=== PATIENT | female | born 1950 | race Caucasian/White ===

== ENCOUNTER → 2017-06-30 08:54 | Outpatient (CLI) | payer BC, MEDICARE, SELFPAY ==
[2017-06-30 11:25] LABS: Alanine Aminotransferase 34 U/L (12-78); Albumin Level 3.7 gm/dL (3.4-5.0); Albumin/Globulin Ratio 1.2 (1.1-1.8); Alkaline Phosphatase 105 U/L (46-116); Anion Gap 13.9 mEq/L (5-15); Aspartate Amino Transferase 19 U/L (15-37); Bilirubin,Total 0.3 mg/dL (0.2-1.0); Blood Urea Nitrogen 21 mg/dL (7-18); Calcium 9.8 mg/dL (8.5-10.1); Carbon Dioxide 29 mmol/L (21.0-32.0); Chloride 106 mmol/L (98-107); Chol/HDL Ratio 3.5 (1-3.5); Cholesterol 218 mg/dL (140-200); Creatinine,Serum 0.93 mg/dL (0.55-1.02); Estimated Glomerular Filt Rate 60 ml/min (>60); GFR (African American) 73 ML/MIN (>60); Globulin 3.1 gm/dl (1.3-3.2); Glucose 150 mg/dL (74-106); HDL Cholesterol 63 mg/dL (29-89); LDL Cholesterol 134 mg/dL (0-130); Potassium 4.9 mmoL/L (3.5-5.1); Sodium 144 mmol/L (136-145); Total Protein,Serum 6.8 gm/dL (6.4-8.2); Triglycerides 104 mg/dL (30-200); VLDL Cholesterol 21 mg/dL (0-40)
== END ==
PROVIDERS: Visit Provider Internal Medicine Adolescent Medicine
DX: E78.5 Hyperlipidemia, unspecified (principal)
CPT/HCPCS: 36415; 80053; 80061

== ENCOUNTER → 2019-02-02 13:41 | Outpatient (CLI) | payer BC, MEDICARE, SELFPAY ==
--- NOTE | 2019-02-02 14:00 | CT_ITS ---
PROCEDURE: CT ABDOMEN WO/W CON CLINICAL HISTORY: SMA STENOSIS,MESENTERIC ISCHEMIA Superior mesenteric artery stenosis, mesenteric ischemia COMPARISON: CT ABDOMEN PELVIS W CON from 12/24/2018 TECHNIQUE: 75 mL Optiray 350. Images performed without and with contrast. This study was not performed as a CT angiogram which would best quantitate the SMA stenosis. Axial images obtained with sagittal and coronal reformats. All CT scans at the facility use one or more dose reduction, viz: automated exposure control, ma/kV adjustment per patient size (including targeted exams where dose is matched to indication, i.e. head), or iterative reconstruction technique. FINDINGS: Lung bases are clear. Pacemaker artifact noted. There is a small hiatal hernia. The liver, gallbladder, spleen, adrenal glands, pancreas, and kidneys have an unremarkable appearance. No renal or ureteral calculi. Unremarkable appendix. There is a mild amount of retained colonic feces. Calcific plaque is present at the ostium of the celiac artery. There is once again suspected stenosis at the proximal aspect of superior mesenteric artery. This is not further quantitated on this exam. Consider CT angiogram of the aorta for better quantification of the degree of stenosis. There is nonspecific stranding of the subcutaneous fat in the lower abdominal wall. IMPRESSION: 1. No acute finding. 2. Stenosis of the ostium of the superior mesenteric artery of at least [address] angiogram of the aorta for better quantification. Dictated by: Greg Ramirez MD 02/03/2019 13:09 Electronically signed by Greg Ramirez MD in [place] 02/03/2019 13:09
[2019-02-02 14:35] LABS: Blood Urea Nitrogen 21 mg/dL (7-18); Creatinine,Serum 1.23 mg/dL (0.55-1.02); Estimated Glomerular Filt Rate 44 ml/min (>60); GFR (African American) 53 ML/MIN (>60)
== END ==
PROVIDERS: PCP Internal Medicine Adolescent Medicine; Visit Provider Internal Medicine Adolescent Medicine
DX: I77.1 Stricture of artery (principal); K55.9 Vascular disorder of intestine, unspecified
CPT/HCPCS: 36415; 74170; 82565; 84520; Q9967

== ENCOUNTER → 2019-06-22 08:23 | Outpatient (CLI) | payer MEDICARE, OTHER, SELFPAY ==
--- NOTE | 2019-06-22 08:31 | US_ITS ---
PROCEDURE: US GALLBLADDER CLINICAL INDICATION: ABD PAIN Right upper quadrant pain with nausea and vomiting COMPARISON: CT ABDOMEN WO/W CON from 02/02/2019 FINDINGS: Pancreas: Unremarkable/Not well seen Liver: Unremarkable. There is appropriate direction of blood flow within a non dilated portal vein. Right kidney: Unremarkable appearing. No hydronephrosis. Gallbladder: No gallstones are evident. There is a small slightly hyperechoic nodule along the posterior wall the gallbladder which measures 5 mm. This does not shadow and is consistent with a small gallbladder polyp. No pericholecystic fluid or biliary dilatation. No gallbladder wall thickening. IMPRESSION: Small gallbladder wall polyp otherwise negative Dictated by: Greg Ramirez MD 06/22/2019 13:07 Electronically signed by Greg Ramirez MD in [facility] 06/22/2019 13:07
[2019-06-22 10:27] LABS: Blood Urea Nitrogen 20 mg/dl (7-17); Estimated Glomerular Filt Rate 55 ml/min (>60); GFR (African American) 67 ML/MIN (>60)
== END ==
PROVIDERS: PCP Internal Medicine Adolescent Medicine; Visit Provider Internal Medicine Adolescent Medicine
DX: R10.11 Right upper quadrant pain (principal); N18.1 Chronic kidney disease, stage 1
CPT/HCPCS: 36415; 76705; 82565; 84520

== ENCOUNTER → 2019-07-05 10:11 | Outpatient (CLI) | payer MEDICARE, OTHER, SELFPAY ==
--- NOTE | 2019-07-05 10:18 | NM_ITS ---
PROCEDURE: NM HEPATOBILIARY W PHARM CLINICAL INDICATION: ABD PAIN COMPARISON: No exams were available for comparison TECHNIQUE: DOSE: 8.06 mCi technetium Choletec and 1.8 mcg of CCK FINDINGS: Homogeneous activity is present within the hepatic parenchyma. Activity is present in the gallbladder by 5 minutes. Activity is present in the small bowel by 20 minutes. The gallbladder ejection fraction is calculated to be 92 percent. CCK-The patient did not report pain or other symptoms during CCK infusion. IMPRESSION: Unremarkable hepatobiliary scan with normal gallbladder ejection fraction Dictated by: Greg Ramirez MD 07/05/2019 12:58 Electronically signed by Greg Ramirez MD in [facility] 07/05/2019 12:58
--- NOTE | 2019-07-05 10:49 | HMH.ITSHM ---
Current Home Medications as stated by this patient Zenaida Griggs or leasing representative. []TYLENOL PM MIRALAX LYRICA AMLODIPINE BLADDER MED CELEXA VITAMINS
== END ==
PROVIDERS: PCP Internal Medicine Adolescent Medicine; Visit Provider Internal Medicine Adolescent Medicine
DX: R10.11 Right upper quadrant pain (principal)
CPT/HCPCS: 78227; A9537; J2805

== ENCOUNTER → 2020-09-12 09:30 | Outpatient (CLI) | payer MEDICARE, OTHER, SELFPAY ==
[2020-09-12 10:10] LABS: Basophils # 0.1 K/mm3 (0-0.2); Basophils % 1.2 % (0.1-2.0); Eosinophils # 0.4 K/mm3 (0.0-0.4); Eosinophils % 6.3 % (0.1-12.0); Hematocrit 38.1 % (37.0-47.0); Hemoglobin 12.4 g/dL (12.2-16.2); Mean Corpuscular HGB Conc 32.6 g/dL (31.8-35.4); Mean Corpuscular Hemoglobin 29.2 pg (27.0-31.2); Mean Corpuscular Volume 89.5 fl (81-99); Mean Platelet Volume 7.4 fl (7.4-10.4); Monocytes # 0.5 K/mm3 (0.1-1.0); Monocytes % 8.4 % (1.7-9.3); Neutrophils # 3.4 K/mm3 (1.8-7.8); Platelet Count 266 K/mm3 (142-424); Red Blood Count 4.26 M/mm3 (4.20-5.40); Red Cell Distribution Width 13.1 % (11.5-17.5); White Blood Count 6.4 K/mm3 (4.8-10.8)
[2020-09-12 11:06] LABS: Alanine Aminotransferase 19 U/L (12-78); Albumin Level 4.2 g/dl (3.5-5.0); Albumin/Globulin Ratio 1.8 (1.1-1.8); Alkaline Phosphatase 95 U/L (38-126); Anion Gap 16.1 mEq/L (5-15); Aspartate Amino Transferase 21 U/L (14-36); Bilirubin,Total 0.5 mg/dl (0.2-1.3); Blood Urea Nitrogen 20 mg/dl (7-17); Calcium 9.5 mg/dl (8.4-10.2); Carbon Dioxide 32 mmol/L (22.0-30.0); Chloride 101 mmol/L (98-107); Chol/HDL Ratio 3.6 (1-3.5); Cholesterol 210 mg/dl (140-200); Estimated Glomerular Filt Rate 61 ml/min (>60); GFR (African American) 74 ML/MIN (>60); Globulin 2.4 g/dL (1.3-3.2); Glucose 148 mg/dl (74-100); HDL Cholesterol 59 mg/dl (40-60); Potassium 5.1 mmoL/L (3.5-5.1); Sodium 144 mmol/L (136-145); Total Protein,Serum 6.6 g/dl (6.3-8.2); Triglycerides 131 mg/dl (30-150); VLDL Cholesterol 26 mg/dL (0-40)
[2020-09-12 11:17] LABS: Direct LDL Cholesterol 117.96 mg/dL (100-129)
[2020-09-12 11:20] LABS: Hemoglobin A1C 6.5 % (4.0-6.0)
[2020-09-12 11:57] LABS: Vitamin B12 335 pg/mL (239-931)
== END ==
PROVIDERS: Visit Provider Internal Medicine Adolescent Medicine
DX: R73.9 Hyperglycemia, unspecified (principal); E78.5 Hyperlipidemia, unspecified; E55.9 Vitamin D deficiency, unspecified
CPT/HCPCS: 36415; 80053; 80061; 82306; 82607; 83036; 85025

== ENCOUNTER → 2020-11-07 10:32 | Outpatient (CLI) | payer MEDICARE, OTHER, SELFPAY | PROVIDERS: PCP Internal Medicine Adolescent Medicine; Visit Provider Nurse Practitioner | DX: Z20.822 Contact with and (suspected) exposure to COVID-19 (principal) | CPT/HCPCS: C9803; U0003; U0005 ==

== ENCOUNTER 2020-11-07 18:07 | Emergency (ER) | payer MEDICARE, OTHER, SELFPAY ==
[2020-11-07 18:40] VITALS: BP 162/68; PULSE 74; RESP 18; TEMP 36.8; O2SAT 95; BMI 32.3
[2020-11-07 18:49] LABS: UTC Strep Screen (Rapid) Negative (Negative)
--- NOTE | 2020-11-07 19:16 | HMH.EDUTC ---
[facility] [place] Disposition Clinical Impression: Sinusitis Qualifiers: Sinusitis location: unspecified location Chronicity: unspecified Qualified Code(s): J32.9 - Chronic sinusitis, unspecified Disposition: Home, Self-Care Condition on Discharge: Good Instructions: Sinusitis, Diarrhea, DI for Sinusitis, DI for Vomiting -- Adult Additional Instructions: *Monitor Temp, Over the counter Motrin or Tylenol as directed/as needed Tylenol every 4 hours and Motrin every 6 hours (as long as your family doctor has told you that you can take it) for fever or pain. and straight to ER if unable to lower temp less than 101.0 after medication given *Warm salt water gargles may help to soothe the throat *Throat Lozenges *Warm fluids like tea with honey may help to soothe the throat *Sleep elevated *Humidifier/Vaporizer ? Zofran as prescribed ? You was given an outpatient order for diarrhea panel, please collect specimen and bring back to outpatient lab then call back to the [facility] or follow up with family doctor for results *Flonase 2 sprays in each nostril daily but be aware that it may take 2-3 days before you notice improvement ? Start antibiotic today. Be sure to complete entire prescription even if feeling better ? Monitor temp. Tylenol every 4 hours as needed and / or ibuprofen every 6 hours as needed ( As long as your primary care physician has told you that it ok to take both. For fever/aches/pains ER if no less than 101 despite Tylenol or Motrin ? Humidifier/vaporizer or hot steamy shower Follow up IMMEDIATELY for new or worsening of symptoms OR no noticeable improvement over the next 48-72 hours. 911 immediately for any life threatening symptoms such as chest pain or difficulty breathing Follow up IMMEDIATELY for new or worsening symptoms or no Noticeable improvement over the next 48-72 hours. 911 for difficulty breathing or swallowing Prescriptions: Amoxicillin/Potassium Clav [Augmentin 875-125 Tablet] 1 tab PO Q12H 7 Days #14 tab Transmission Status: Received by [facility] #[id number] Fluticasone Propionate [Flonase 50mcg nasal spray 16gm] 1 spr NS DAILY #1 ml Transmission Status: Received by [facility] # Ondansetron [Zofran 4mg ODT] 4 mg PO BIDP PRN #4 tab PRN Reason: Nausea Transmission Status: Received by [facility] #[id number] Referrals: Miguel Winkler MD [Primary Care Provider] - As needed Time of Disposition: 19:41 Medical Decision Making - Candido Inquiry Pt receiving controlled substance: No Candido was queried for this patient: No Vital Signs: 11/07/20 18:40 11/07/20 19:31 Temperature 98.2 F 98.1 F Temperature Source Oral Pulse Rate 72 Pulse Rate [Left] 74 Respiratory Rate 18 19 Blood Pressure 169/64 H Blood Pressure [Right Arm] 162/68 H Blood Pressure Mean [Right Arm] 99 02 Sat by Pulse Oximetry 95 - Lab Data Lab results reviewed: Yes: I reviewed the patient's lab results. Lab Results 11/07/20 18:49: Strep Scn Rapid Clinic Negative Orders (Tests/Meds): ED MEDICATIONS Discontinued Medications Generic Name Dose Route Start Last Admin Trade Name Freq PRN Reason Stop Dose Admin Amoxicillin/Clavulanate Potassium 1 each 11/07/20 19:51 11/07/20 20:00 Amoxicillin/Pot Clavulan 500mg Tablet PO 11/07/20 19:52 1 each ONCE ONE Administration Ondansetron HCl 4 mg 11/07/20 19:27 11/07/20 19:30 Ondansetron 4mg Odt SL 11/07/20 19:28 4 mg ONCE ONE Administration ORDERS Category Date Time Status Strep Screen Confirmation Stat Micro 11/07/20 18:49 Received Medical Decision Narrative: Due to patient being on Citalopram discussed Zofran for N/V with Pharmacy and will give dose in ED and dc home with 2 days worth at 4mg BID for N/V [facility] [place] HPI - General Stated complaint: sore throat,VÁSQUEZ,vomiting,[place] Time Seen by Provider: 11/07/20 19:17 Mode of Arrival: Ambulatory Source of Information: Patient Limitations: No Limitations Description of
[2020-11-07 19:31] VITALS: BP 169/64; PULSE 72; RESP 19; TEMP 36.7
== END 2020-11-07 20:00 | disposition home or self-care (01) ==
PROVIDERS: Emergency Provider Nurse Practitioner; PCP Internal Medicine Adolescent Medicine
DX: J32.9 Chronic sinusitis, unspecified (principal)
CPT/HCPCS: 87880; 99202; G0463

== ENCOUNTER → 2020-11-08 13:49 | Outpatient (CLI) | payer MEDICARE, OTHER, SELFPAY ==
[2020-11-08 13:50] LABS: Adenovirus F 40/41, stool Not Detected (NotDetected); Astrovirus Not Detected (NotDetected); Campylobacter Not Detected (NotDetected); Clostridium Difficile A/B, PCR Not Detected (NotDetected); Cryptosporidium Not Detected (NotDetected); Cyclospora Cayetanesis Not Detected (NotDetected); Entamoeba histolytica Not Detected (NotDetected); Enteroaggregative E coli Not Detected (NotDetected); Enteropathogenic E coli Not Detected (NotDetected); Enterotoxigenic E coli Not Detected (NotDetected); Giardia lamblia Not Detected (NotDetected); Norovirus Not Detected (NotDetected); Plesimonas Shigalloides, PCR Not Detected (NotDetected); Rotavirus A Not Detected (NotDetected); Salmonella, PCR Not Detected (NotDetected); Sapovirus Not Detected (NotDetected); Shigella Enterovasive E coli Not Detected (NotDetected); Vibrio Cholerae Not Detected (NotDetected); Vibrio, PCR Not Detected (NotDetected); Yersinia Entercolitica, PCR Not Detected (NotDetected)
[2020-11-08 17:13] LABS: Shiga-like toxin E coli Detected (NotDetected)
--- NOTE | 2020-11-08 21:36 | PC.NURSE ---
Zoë from lab called to report results of diarrhea panel ordered by Breanna Blackwell. Specimen resulted positive for E. Choli. Unable to reach pt by phone to report. Will leave note for
== END ==
PROVIDERS: Visit Provider Nurse Practitioner
DX: R19.7 Diarrhea, unspecified (principal); B96.23 Unspecified Shiga toxin-producing Escherichia coli [E. coli] [STEC] as the cause of diseases classified elsewhere
CPT/HCPCS: 87506

== ENCOUNTER → 2020-11-20 15:22 | Outpatient (CLI) | payer MEDICARE, OTHER, SELFPAY ==
[2020-11-20 15:52] LABS: Basophils # 0.1 K/mm3 (0-0.2); Eosinophils # 0.3 K/mm3 (0.0-0.4); Eosinophils % 3.5 % (0.1-12.0); Hematocrit 38.4 % (37.0-47.0); Hemoglobin 12.6 g/dL (12.2-16.2); Lymphocytes # 2.2 K/mm3 (0.7-4.5); Lymphocytes % 28.6 % (10-50); Mean Corpuscular HGB Conc 32.8 g/dL (31.8-35.4); Mean Corpuscular Hemoglobin 30.2 pg (27.0-31.2); Mean Corpuscular Volume 91.9 fl (81-99); Mean Platelet Volume 6.8 fl (7.4-10.4); Monocytes # 0.7 K/mm3 (0.1-1.0); Monocytes % 9.8 % (1.7-9.3); Neutrophils # 4.3 K/mm3 (1.8-7.8); Neutrophils % 57.2 % (37.0-80.0); Platelet Count 393 K/mm3 (142-424); Red Blood Count 4.17 M/mm3 (4.20-5.40); Red Cell Distribution Width 12.4 % (11.5-17.5); White Blood Count 7.6 K/mm3 (4.8-10.8)
[2020-11-20 16:33] LABS: Alanine Aminotransferase 17 U/L (12-78); Albumin Level 3.9 g/dl (3.5-5.0); Albumin/Globulin Ratio 1.4 (1.1-1.8); Alkaline Phosphatase 80 U/L (38-126); Anion Gap 9.5 mEq/L (5-15); Aspartate Amino Transferase 21 U/L (14-36); Bilirubin,Total 0.3 mg/dl (0.2-1.3); Blood Urea Nitrogen 14 mg/dl (7-17); Calcium 9.9 mg/dl (8.4-10.2); Carbon Dioxide 32 mmol/L (22.0-30.0); Chloride 101 mmol/L (98-107); Estimated Glomerular Filt Rate 70 ml/min (>60); GFR (African American) 85 ML/MIN (>60); Globulin 2.8 g/dL (1.3-3.2); Glucose 109 mg/dl (74-100); Potassium 4.5 mmoL/L (3.5-5.1); Sodium 138 mmol/L (136-145); Total Protein,Serum 6.7 g/dl (6.3-8.2)
== END ==
PROVIDERS: Visit Provider Internal Medicine Adolescent Medicine
DX: A09 Infectious gastroenteritis and colitis, unspecified (principal)
CPT/HCPCS: 36415; 80053; 85025

== ENCOUNTER 2020-11-27 16:42 | Inpatient (IN) | payer MEDICARE, OTHER, SELFPAY ==
[2020-11-27 16:43] VITALS: BP 135/67; PULSE 71; RESP 18; TEMP 36.7; O2SAT 98; BMI 32.3
[2020-11-27 17:01] VITALS: BP 153/64; PULSE 68; RESP 16; O2SAT 95
--- NOTE | 2020-11-27 17:01 | ECG_ITS ---
APPROVED REPORT Exam: Resting ECG HR:68 bpm ECG Measurements Heart Rate 68 AXES MO P 80 QRSd 132 QRS -69 QT 460 T 114 QTc 489 Conclusion Electronic ventricular pacemaker Electronically signed by : Miguel Winkler MD 11/28/2020 17:48:59
--- NOTE | 2020-11-27 17:01 | CT_ITS ---
PROCEDURE INFORMATION: Exam: CT Abdomen And Pelvis With Contrast Exam date and time: 11/27/2020 5:01 PM Age: 74 years old Clinical indication: Abdominal pain; Localized; Lower; Additional info: Lower abd pain TECHNIQUE: Imaging protocol: Computed tomography of the abdomen and pelvis with contrast. Radiation optimization: All CT scans at this facility use at least one of these dose optimization techniques: automated exposure control; mA and/or kV adjustment per patient size (includes targeted exams where dose is matched to clinical indication); or iterative reconstruction. Contrast material: ISOVUE; Contrast volume: 75 ml; Contrast route: IV; COMPARISON: CT ABDOMEN WO/W CON 02/02/2019 3:28 PM FINDINGS: Tubes, catheters and devices: Partially visualized pacemaker leads within the right cardiac chambers. Mediastinal space: Small-sized hiatal hernia. Liver: Normal. Gallbladder and bile ducts: Possible minimal cholelithiasis. Pancreas: Normal. Spleen: Normal. Adrenal glands: Normal. No mass. Kidneys and ureters: Normal. Stomach and bowel: Colonic diverticulosis, with extensive acute diverticulitis involving the mid sigmoid colon, where there is moderate wall thickening and adjacent associated inflammatory stranding. No perforation or abscess. Moderate amount of stool throughout the colon, compatible constipation. No obstruction. Appendix: Appendix normal. Intraperitoneal space: Unremarkable. No free air. No significant fluid collection. Vasculature: Atherosclerotic disease of the abdominal aorta and iliac arteries. Atherosclerotic disease of the proximal renal arteries bilaterally as well as the proximal SMA, causing mild luminal narrowing. Phleboliths within the pelvis. Lymph nodes: Unremarkable. No enlarged lymph nodes. Urinary bladder: Unremarkable as visualized. Reproductive: Uterus is surgically absent. Bones/joints: Multilevel thoracolumbar spine degenerative disc space narrowing and osteophyte formation. Soft tissues: Normal. Other findings: Calcified granulomas within the periphery of the visualized lower lobes. IMPRESSION: 1. Colonic diverticulosis, with extensive acute diverticulitis involving the mid sigmoid colon, where there is moderate wall thickening and adjacent associated inflammatory stranding. No perforation or abscess. Recommend follow up after therapy to ensure resolution of these findings, as colonic carcinoma could produce a similar appearance. 2. Moderate amount of stool throughout the colon, compatible constipation. No obstruction.
--- NOTE | 2020-11-27 17:11 | HMH.EDGENADL ---
ED Disposition Clinical Impression: Acute diverticulitis Constipation Qualifiers: Constipation type: unspecified constipation type Qualified Code(s): K59.00 - Constipation, unspecified Disposition: Admitted as Observation Condition on Discharge: Fair Referrals: Miguel Winkler MD [Primary Care Provider] - - Critical Care Critical Care Time: No Attestation: On 11/27/20, the high probability of a clinically significant, sudden or life threatening deterioration of the following system(s) required my full and direct attention, intervention and personal management. The time I documented below is in addition to time spent performing reported procedures but includes the following listed in this critical care notation. Medical Decision Making - Candido Inquiry Pt receiving controlled substance: No Vital Signs: 11/27/20 16:43 11/27/20 17:01 11/27/20 18:00 Temperature 98.0 F Temperature Source Oral Pulse Rate 68 67 Pulse Rate [Right Radial] 71 Respiratory Rate 18 16 Blood Pressure 153/64 H 141/60 H Blood Pressure [Right Arm] 135/67 Blood Pressure Mean [Right Arm] 89 Blood Pressure Source Automatic Cuff Blood Pressure Source [Right Arm] Automatic Cuff Blood Pressure Position Sitting Blood Pressure Position [Right Arm] Sitting 02 Sat by Pulse Oximetry 98 95 94 L Oxygen Delivery Method Room Air Room Air - Lab Data Lab Results 11/27/20 17:18: WBC 14.9 H, RBC 4.26, Hgb 12.5, Hct 39.6, MCV 93.0, MCH 29.5, MCHC 31.7 L, RDW 13.2, Plt Count 417, MPV 8.5, Neut % (Auto) 81.5 H, Lymph % (Auto) 8.3 L, [place] % (Auto) 9.6 H, Eos % (Auto) 0.4, Baso % (Auto) 0.3, Neut # (Auto) 12.1 H, Lymph # (Auto) 1.2, [place] # (Auto) 1.4 H, Eos # (Auto) 0.1, Baso # (Auto) 0.0 11/27/20 17:18: Sodium 135 L, Potassium 3.7, Chloride 97 L, Carbon Dioxide 31 H, Anion Gap 10.7, BUN 10, Creatinine 0.90, Estimated Creat Clear 70, Estimated GFR 61, Est GFR ( Amer) 74, Glucose 201 H, Calcium 9.7, Total Bilirubin 0.5, AST 18, ALT 13, Alkaline Phosphatase 103, Troponin I < 0.01, Total Protein 7.3, Albumin 3.9, Globulin 3.4 H, Albumin/Globulin Ratio 1.1, Lipase 74 Result diagrams: 11/27/20 17:18 11/27/20 17:18 Orders (Tests/Meds): ED MEDICATIONS Generic Name Dose Route Start Last Admin Trade Name Freq PRN Reason Stop Dose Admin Metronidazole 500 mg in 100 mls @ 100 mls/hr 11/27/20 19:45 Flagyl 500mg/100ml Ivpb IV 12/11/20 19:44 Q8H STEVIE Levofloxacin/Dextrose 750 mg in 150 mls @ 100 mls/hr 11/27/20 19:45 Levofloxacin 750mg/150ml Premix IV 12/11/20 19:44 Q24H STEVIE Discontinued Medications Generic Name Dose Route Start Last Admin Trade Name Freq PRN Reason Stop Dose Admin Iopamidol 75 ml 11/27/20 18:21 11/27/20 18:22 Iopamidol-370 (76%);100ml Bottle IV 11/27/20 18:22 75 ml ONCE ONE Administration Methylprednisolone Sodium Succinate 125 mg 11/27/20 20:11 Methylprednisolone Sod Succ 125mg Vial IV 11/27/20 20:12 ONCE ONE Sodium Chloride 1,000 ml 11/27/20 17:30 11/27/20 18:55 Sodium Chloride 0.9% 1000ml Bag IV 11/27/20 17:31 1,000 ml BOLUS ONE Administration Sodium Chloride 10 ml 11/27/20 18:21 11/27/20 18:22 Sodium Chloride 0.9% 10ml Syr (Rad Only) IV 11/27/20 18:22 10 ml ONCE ONE Administration ORDERS Category Date Time Status Rapid PCR Covid and Flu A/B Stat Lab 11/27/20 20:05 Received Troponin I Q3H Lab 11/27/20 20:03 Received Troponin I Q3H Lab 11/27/20 23:15 Ordered UA [Urinalysis and Microscopic] Stat Lab 11/27/20 20:07 Ordered - CT Data CT Scan: Abdomen, Pelvis Time Received: 19:[address] Reviewed: Yes: I have viewed the radiologist's interpretation Findings Narrative: PROCEDURE INFORMATION: Exam: CT Abdomen And Pelvis With Contrast Exam date and time: 11/27/2020 5:01 PM Age: 74 years old Clinical indication: Abdominal pain; Localized; Lower; Additional info: Lower abd pain TECHNIQUE: Imaging protocol: Com
[2020-11-27 17:37] LABS: Chloride 97 mmol/L (98-107); Potassium 3.7 mmoL/L (3.5-5.1); Sodium 135 mmol/L (136-145)
[2020-11-27 17:39] LABS: Alanine Aminotransferase 13 U/L (12-78); Aspartate Amino Transferase 18 U/L (14-36); Blood Urea Nitrogen 10 mg/dl (7-17); Creatinine Clearance Estimated 70 mL/min (50-200); Estimated Glomerular Filt Rate 61 ml/min (>60); GFR (African American) 74 ML/MIN (>60)
[2020-11-27 17:40] LABS: Albumin Level 3.9 g/dl (3.5-5.0); Albumin/Globulin Ratio 1.1 (1.1-1.8); Alkaline Phosphatase 103 U/L (38-126); Anion Gap 10.7 mEq/L (5-15); Basophils % 0.3 % (0.1-2.0); Bilirubin,Total 0.5 mg/dl (0.2-1.3); Calcium 9.7 mg/dl (8.4-10.2); Carbon Dioxide 31 mmol/L (22.0-30.0); Eosinophils # 0.1 K/mm3 (0.0-0.4); Eosinophils % 0.4 % (0.1-12.0); Globulin 3.4 g/dL (1.3-3.2); Glucose 201 mg/dl (74-100); Hematocrit 39.6 % (37.0-47.0); Hemoglobin 12.5 g/dL (12.2-16.2); Lipase 74 U/L (23-300); Lymphocytes # 1.2 K/mm3 (0.7-4.5); Lymphocytes % 8.3 % (10-50); Mean Corpuscular HGB Conc 31.7 g/dL (31.8-35.4); Mean Corpuscular Hemoglobin 29.5 pg (27.0-31.2); Mean Platelet Volume 8.5 fl (7.4-10.4); Monocytes # 1.4 K/mm3 (0.1-1.0); Monocytes % 9.6 % (1.7-9.3); Neutrophils # 12.1 K/mm3 (1.8-7.8); Neutrophils % 81.5 % (37.0-80.0); Platelet Count 417 K/mm3 (142-424); Red Blood Count 4.26 M/mm3 (4.20-5.40); Red Cell Distribution Width 13.2 % (11.5-17.5); Total Protein,Serum 7.3 g/dl (6.3-8.2); White Blood Count 14.9 K/mm3 (4.8-10.8)
[2020-11-27 17:53] LABS: Troponin I < 0.01 ng/ml (0.00-0.034)
[2020-11-27 18:00] VITALS: BP 141/60; PULSE 67; O2SAT 94
--- NOTE | 2020-11-27 19:40 | PC.NURSE ---
paged dr cavanaugh @ this time
[2020-11-27 20:13] LABS: Coronavirus 19, PCR Not Detected (NotDetected); Influenza A, PCR Not Detected (NotDetected); Influenza B, PCR Not Detected (NotDetected)
[2020-11-27 20:19] LABS: Microscopic, Urine URINE MICROSCOPIC (MICROSCOPIC)
--- NOTE | 2020-11-27 20:19 | PC.NURSE ---
spoke with dr cavanaugh. notified house of admission
[2020-11-27 20:21] LABS: Appearance,Urine CLEAR (Clear); Bilirubin,Urine Negative (Negative); Blood, Urine 2+ (Negative); Color,Urine DK YELLOW (Yellow); Glucose,Urine (UA) Negative (Negative); Ketones,Urine Negative (Negative); Leukocyte Esterase,Urine Negative (Negative); Nitrate,Urine Negative (Negative); Protein,Urine 1+ (Negative); Specific Gravity, Urine 1.015 (1.005-1.030); Urobilinogen,Urine 0.2 EU/dl (0.2)
[2020-11-27 20:42] LABS: Troponin I < 0.01 ng/ml (0.00-0.034)
[2020-11-27 20:43] LABS: Bacteria,Urine Trace /lpf
[2020-11-27 20:44] LABS: Mucus,Urine 1+ /lpf
[2020-11-27 21:21] VITALS: BP 141/60; PULSE 67; RESP 16; TEMP 36.9; O2SAT 97
[2020-11-27 21:24] VITALS: BP 139/62; PULSE 88; RESP 20; TEMP 36.9; O2SAT 95
[2020-11-27 21:32] VITALS: BMI 31.7
[2020-11-27 22:00] VITALS: BP 172/83; PULSE 73; RESP 16; TEMP 37; O2SAT 97
[2020-11-27 23:37] LABS: Troponin I < 0.01 ng/ml (0.00-0.034)
[2020-11-28] VITALS: BP 170/78; PULSE 70; PULSE 77; RESP 16; TEMP 37; O2SAT 96
[2020-11-28 04:00] VITALS: BP 156/93; PULSE 66; PULSE 70; RESP 16; TEMP 36.9; O2SAT 96
[2020-11-28 05:08] VITALS: BMI 31.7
--- NOTE | 2020-11-28 06:40 | PC.NURSE ---
No acute changes. Pt has c/o tenderness and cramping to abdomen. Declined morphine for pain. Requested tylenol instead. Pt has ambulated to x2 this shift. VSS. No other concerns. Will continue to monitor.
[2020-11-28 07:06] LABS: Basophils % 0.1 % (0.1-2.0); Eosinophils % 0.4 % (0.1-12.0); Hematocrit 36.1 % (37.0-47.0); Hemoglobin 11.8 g/dL (12.2-16.2); Lymphocytes # 0.7 K/mm3 (0.7-4.5); Lymphocytes % 6.4 % (10-50); Mean Corpuscular HGB Conc 32.8 g/dL (31.8-35.4); Mean Corpuscular Hemoglobin 30.1 pg (27.0-31.2); Mean Corpuscular Volume 91.8 fl (81-99); Mean Platelet Volume 8.1 fl (7.4-10.4); Monocytes # 0.3 K/mm3 (0.1-1.0); Monocytes % 2.1 % (1.7-9.3); Neutrophils # 10.5 K/mm3 (1.8-7.8); Platelet Count 395 K/mm3 (142-424); Red Blood Count 3.93 M/mm3 (4.20-5.40); Red Cell Distribution Width 13.3 % (11.5-17.5); White Blood Count 11.6 K/mm3 (4.8-10.8)
[2020-11-28 07:08] LABS: MANUAL DIFFERENTIAL MANUAL DIFFERENTIAL (MANUAL DIFF)
--- NOTE | 2020-11-28 07:56 | HMH.PHAINT ---
MEDICATION RECONCILIATION COMPLETE USING PREVIOUS DISCHARGE PAPERWORK AND SURESCRIPTS INFORMATION
--- NOTE | 2020-11-28 07:58 | HMH.HP ---
*Admission Date: 11/27/20 *Chief complaint: Abdominal pain and constipation *History of present illness: 74-year-old white female who enjoys very good functional health who 4 weeks ago had significant diarrhea was found to have sugar toxin positive E. coli. Was placed on antibiotics, by urgent treatment center, and saw us in the office where we advise stopping antibiotics and treating symptomatically which seemed to resolve her problem. Situation was complicated by some urinary outflow issues and urology appointment for hemodynamic evaluation is pending but patient had improved nicely. Unfortunately over the past 3 or 4 days she has had increasing abdominal pain and swelling and notes that she has not had a good bowel movement over the past 7 to 10 days. Evaluation in the ER showed elevated white count, CT scan was significant for significant colitis and diverticulitis exacerbation and she was admitted to hospital with 1 dose of steroids and antibiotic therapy. [facility] History I have reviewed the patient's past medical history: Yes Medical History: Reports:: Hypertension, Internal Pacemaker Denies:: Cancer, Diabetes Mellitus Type 1, Diabetes Mellitus Type 2 *Have you ever received a pneumonia vaccine?: No *Have you received a flu vaccine this season?: No Other Surgeries: Yes: Cardiac Catheterization, Hysterectomy-Partial, Pacemaker - *Social History Smoking Status: Never smoker Alcohol Intake: never *Occupational Status:: retired *Travel in the last 8 weeks: None Family Hx:: Cancer, Diabetes, Heart Attack, Hypertension, Stroke, Alcoholism Review of Systems - Review of Systems Review of systems:: pertinent systems reviewed and negative unless documented below Meds Home Medications Medication Instructions Recorded Confirmed Type cholecalciferol (vitamin D3) 25 1,000 unit PO DAILY 12/22/18 11/27/20 History mcg (1,000 unit) capsule citalopram 40 mg tablet 40 mg PO DAILY tab 12/22/18 11/27/20 History nebivolol 5 mg tablet 5 mg PO DAILY 12/22/18 11/27/20 History polyethylene glycol 3350 17 gram 17 g PO DAILY 12/22/18 11/27/20 History oral powder packet pregabalin 75 mg capsule 75 mg PO DAILY 12/22/18 11/27/20 History Acetaminophen/Diphenhydramine 2 tab PO HS PRN 11/27/20 11/28/20 History [Tylenol Pm Ex-Strength Caplet] Dicyclomine HCl 20 mg PO QIDP PRN 11/27/20 11/28/20 History Fluticasone Propionate 16 gm NS DAILY 11/28/20 11/28/20 History Omeprazole [Omeprazole 20mg 20 mg PO BID 11/28/20 11/28/20 History Capsule] Ondansetron [Ondansetron Odt 8mg 8 mg PO TID PRN 11/28/20 11/28/20 History Tab] Allergies Allergy/AdvReac Type Severity Reaction Status Date / Time oxycodone [From PERCOCET] Allergy Unknown Verified 02/02/19 13:35 Exam Vital signs and Labs for Last 24 Hours: Temp Pulse Resp BP Pulse Ox 98.5 F 66 16 156/93 H 96 11/28/20 04:00 11/28/20 04:00 11/28/20 04:00 11/28/20 04:00 11/28/20 04:00 Laboratory Results - last 24 hr 11/27/20 17:18: WBC 14.9 H, RBC 4.26, Hgb 12.5, Hct 39.6, MCV 93.0, MCH 29.5, MCHC 31.7 L, RDW 13.2, Plt Count 417, MPV 8.5, Neut % (Auto) 81.5 H, Lymph % (Auto) 8.3 L, [place] % (Auto) 9.6 H, Eos % (Auto) 0.4, Baso % (Auto) 0.3, Neut # (Auto) 12.1 H, Lymph # (Auto) 1.2, [place] # (Auto) 1.4 H, Eos # (Auto) 0.1, Baso # (Auto) 0.0 11/27/20 17:18: Sodium 135 L, Potassium 3.7, Chloride 97 L, Carbon Dioxide 31 H, Anion Gap 10.7, BUN 10, Creatinine 0.90, Estimated Creat Clear 70, Estimated GFR 61, Est GFR ( Amer) 74, Glucose 201 H, Calcium 9.7, Total Bilirubin 0.5, AST 18, ALT 13, Alkaline Phosphatase 103, Troponin I < 0.01, Total Protein 7.3, Albumin 3.9, Globulin 3.4 H, Albumin/Globulin Ratio 1.1, Lipase 74 11/27/20 20:03: Troponin I < 0.01 11/27/20 20:05: SARS-CoV-2 (PCR) Not detected, Influenza A Untype (PCR) Not detected, Influenza Type B (PCR) Not detected 11/27/20 20:14: Urine Color Dk yellow, Urine Appearance Clear, Urine pH 6.0, Ur Specific [place] 1.015, U
[2020-11-28 08:00] VITALS: BP 159/66; PULSE 60; PULSE 70; RESP 16; TEMP 36.9; O2SAT 98
[2020-11-28 08:36] LABS: Lymphocytes % 7 % (10-50); Monocytes % 3 % (2-9); Neutrophils % 90 % (42-76); Platelet Estimate Normal; RBC Morphology Normal; Total Cells Counted 100
[2020-11-28 12:00] VITALS: PULSE 70
[2020-11-28 16:00] VITALS: BP 151/64; PULSE 69; RESP 16; TEMP 36.4; O2SAT 96
[2020-11-28 20:00] VITALS: BP 159/58; PULSE 72; RESP 18; TEMP 36.8; O2SAT 96
--- NOTE | 2020-11-28 20:08 | PC.NURSE ---
No acute changes this shift. Pt had minimal pain after lunch, has tolerated well, with no diarrhea or emesis. VSS. CB in reach
[2020-11-29] VITALS: BP 156/57; PULSE 68; RESP 18; TEMP 36.9; O2SAT 95
[2020-11-29 04:00] VITALS: BP 153/75; PULSE 82; RESP 18; TEMP 36.7; O2SAT 93
--- NOTE | 2020-11-29 04:45 | PC.NURSE ---
no acute changes this shift. pt has rested well. abx therapy continued through the night. pt is a&0 X4. vss. call light in reach.
[2020-11-29 05:13] VITALS: BMI 32.5
--- NOTE | 2020-11-29 07:44 | HMH.DCSUM ---
General - General Admission date:: 11/28/20 Discharge date: 11/29/20 HPI HPI: 74-year-old white female who enjoys very good functional health who 4 weeks ago had significant diarrhea was found to have sugar toxin positive E. coli. Was placed on antibiotics, by urgent treatment center, and saw us in the office where we advise stopping antibiotics and treating symptomatically which seemed to resolve her problem. Situation was complicated by some urinary outflow issues and urology appointment for hemodynamic evaluation is pending but patient had improved nicely. Unfortunately over the past 3 or 4 days she has had increasing abdominal pain and swelling and notes that she has not had a good bowel movement over the past 7 to 10 days. Evaluation in the ER showed elevated white count, CT scan was significant for significant colitis and diverticulitis exacerbation and she was admitted to hospital with 1 dose of steroids and antibiotic therapy. Hospital Course Hospital Course: Patient was admitted, placed on Levaquin, Flagyl and a couple of doses of IV steroids, improved over the next couple of days and was able to take clear liquids and then transitioning to full liquids. This morning she was feeling much better, reported that she had a good bowel movement the day before with no blood. Tolerating a full liquid/low residue diet much better and wished to go home. Plan okay to discharge patient with antibiotics, steroids as noted, short-term follow-up in my office to reevaluate. She will continue a low residue diet and a biotic. Objective Vital signs: Temp Pulse Resp BP Pulse Ox 98.0 F 82 18 153/75 H 93 L 11/29/20 04:00 11/29/20 04:00 11/29/20 04:00 11/29/20 04:00 11/29/20 04:00 no acute distress - *Routine HEENT Exam Head: Present: normocephalic Eye: Present: EOMI, PERRL ENT: Present: mucous membranes moist - *Routine Neck Exam Present: supple - *Routine Respiratory Exam Present: CTA bilaterally - *Routine Cardiovascular Exam Present: RRR - *Routine Abdominal Exam Present: soft, normoactive bowel sounds. Absent: tenderness - *Routine Extremities Exam Absent: cyanosis, clubbing, edema - *Routine Skin Exam Present: warm. Absent: rash - Detailed Eye Exam Eyelids: Bilateral normal inspection Results Labs on day of discharge: Labs from last 24 hours 11/28/20 06:48 Total Counted 100 Neutrophils % (Manual) 90 H Lymphocytes % (Manual) 7 L Monocytes % (Manual) 3 Platelet Estimate Normal RBC Morphology Normal DS: Diagnosis - Discharge Diagnosis (1) Acute diverticulitis Status: Acute Discharge Plan - Patient Discharge Instructions ACTIVITY: Continue current activity DIET: other (Low residue diet) - Follow up Plan Follow up with: Miguel Winkler MD [Primary Care Provider] - 12/04/20 Disposition: Home, Self-Care Condition at discharge:: Improved Home Medications: Home Medications Medication Instructions Recorded Confirmed Type cholecalciferol (vitamin D3) 25 1,000 unit PO DAILY 12/22/18 11/27/20 History mcg (1,000 unit) capsule citalopram 40 mg tablet 40 mg PO DAILY tab 12/22/18 11/27/20 History nebivolol 5 mg tablet 5 mg PO DAILY 12/22/18 11/27/20 History polyethylene glycol 3350 17 gram 17 g PO DAILY 12/22/18 11/27/20 History oral powder packet pregabalin 75 mg capsule 75 mg PO DAILY 12/22/18 11/27/20 History Acetaminophen/Diphenhydramine 2 tab PO HS PRN 11/27/20 11/28/20 History [Tylenol Pm Ex-Strength Caplet] Dicyclomine HCl 20 mg PO QIDP PRN 11/27/20 11/28/20 History Fluticasone Propionate 16 gm NS DAILY 11/28/20 11/28/20 History Omeprazole [Omeprazole 20mg 20 mg PO BID 11/28/20 11/28/20 History Capsule] Ondansetron [Ondansetron Odt 8mg 8 mg PO TID PRN 11/28/20 11/28/20 History Tab] dexAMETHasone [Decadron 4mg tablet] 4 mg PO BID #14 tab 11/29/20 Rx levoFLOXacin [Levaquin 500mg 500 mg PO DAILY #7 tab 11/29/20
[2020-11-29 08:00] VITALS: BP 170/59; PULSE 76; RESP 19; TEMP 36.9; O2SAT 95
--- NOTE | 2020-11-29 09:21 | HMH.PHAINT ---
MEDICATION DISCHARGE COUNSELING COMPLETE. DISCUSSED ADDITION OF DEXAMETHASONE, LEVAQUIN, AND FLAGYL TO HOME MEDS. DISCUSSED HOW TO TAKE, ADES FOR ALL 3. AVOID ALCOHOL PRODUCTS WHILE TAKING FLAGYL.
--- NOTE | 2020-11-29 10:00 | PC.NURSE ---
Discharge education provided.Questions encouraged and answered. Pt. v/u.
--- NOTE | 2020-11-29 10:32 | PC.NURSE ---
Pt. left unit ambulatory accompanied by staff x1, and S.O.
== END 2020-11-29 10:32 | disposition home or self-care (01) | DRG 392 ==
LOC: ER 20:16 → 2ND 21:22
PROVIDERS: Admitting Provider Internal Medicine Adolescent Medicine; Emergency Provider Emergency Medicine; PCP Internal Medicine Adolescent Medicine; Visit Provider Internal Medicine Adolescent Medicine
DX: K57.32 Diverticulitis of large intestine without perforation or abscess without bleeding (principal); Z20.822 Contact with and (suspected) exposure to COVID-19; Z87.891 Personal history of nicotine dependence; I10 Essential (primary) hypertension; Z95.0 Presence of cardiac pacemaker; K52.9 Noninfective gastroenteritis and colitis, unspecified; K59.00 Constipation, unspecified
CPT/HCPCS: 36415; 74177; 80053; 81001; 83690; 84484; 85007; 85025; 93005; 96365; 96366; 96375; 99285; C9803; G0378; J1956; Q9967; U0003; U0005

== ENCOUNTER → 2021-04-09 12:51 | Outpatient (CLI) | payer MEDICARE, OTHER, SELFPAY ==
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
[2021-04-09 13:27] LABS: Blood Urea Nitrogen 20 mg/dl (7-17); Estimated Glomerular Filt Rate 61 ml/min (>60); GFR (African American) 74 ML/MIN (>60)
== END ==
PROVIDERS: PCP Internal Medicine Adolescent Medicine; Visit Provider Internal Medicine Adolescent Medicine
DX: R22.2 Localized swelling, mass and lump, trunk (principal)
CPT/HCPCS: 36415; 71270; 82565; 84520; Q9967

== ENCOUNTER → 2021-04-25 13:01 | Outpatient (CLI) | payer MEDICARE, OTHER, SELFPAY ==
--- NOTE | 2021-04-25 13:04 | US_ITS ---
FINAL REPORT CLINICAL HISTORY: THYROID NODULE FINDINGS: THYROID ULTRASOUND Sonographic images of the thyroid was obtained. The right lobe of the thyroid measures 3.4 x 1.7 x 1.4 cm. The left lobe of the thyroid measures 3.5 x 1.4 x 1.2 cm. The isthmus measures 2 mm. There is a 4 x 3 x 2 mm cystic nodule in the right lobe, TI-RADS 1. There is a 1.4 x 1.1 x 1.0 cm predominantly cystic nodule in the right lobe, TI-RADS 1. There is a 10 x 9 x 8 mm predominantly cystic nodule in the left lobe, TI-RADS 1. IMPRESSION: Thyroid nodules as described. Reviewed, Interpreted and Dictated by Zachary Salcedo III, MD Transcribed by Chiquis Shaw Authenticated by Zachary Salcedo III, MD on 04/29/2021 05:43:56 AM [facility]
== END ==
PROVIDERS: PCP Internal Medicine Adolescent Medicine; Visit Provider Internal Medicine Adolescent Medicine
DX: E04.1 Nontoxic single thyroid nodule (principal)
CPT/HCPCS: 76536

== ENCOUNTER → 2021-08-19 12:26 | Outpatient (CLI) | payer MEDICARE, OTHER, SELFPAY ==
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
== END ==
PROVIDERS: PCP Internal Medicine Adolescent Medicine; Visit Provider Internal Medicine Adolescent Medicine
DX: R55 Syncope and collapse (principal)
CPT/HCPCS: 70496; 95816; Q9967

== ENCOUNTER → 2021-12-11 15:59 | Outpatient (CLI) | payer MEDICARE, OTHER, SELFPAY ==
--- NOTE | 2021-12-11 16:05 | MM_ITS ---
PROCEDURE INFORMATION: Exam: MG Bilateral Screening 3D Mammography Exam date and time: 12/11/2021 4:12 PM Age: 75 years old Clinical indication: Screening examination. History of benign right excisional biopsy. TECHNIQUE: Imaging protocol: Bilateral Screening tomosynthesis and 2D mammography including computer-aided detection (CAD) when performed. COMPARISON: 1. MG DMDXUR DIG MAMM-DX UNI-RT 01/09/2015 10:48 AM 2. MG DMDXUAVR DIG MAMM-DX UNI ADD VIEWS-RT 12/18/2014 2:03 PM 3. MG DMSB DIG MAMM-SCREEN KI 11/05/2014 2:46 PM 4. MG BC MAMM DIAG UNILAT DIG 09/18/2008 3:42 PM FINDINGS: MAMMOGRAPHY: Breast composition: The breasts are heterogeneously dense, which may obscure small masses. Mass: No suspicious mass. Architectural distortion: None. Calcifications: No suspicious calcifications. Asymmetric density: None. Skin thickening: None. Axillary adenopathy: None. Other findings: Two right biopsy clips. Left pacemaker battery pack in the axilla and upper left breast, limiting evaluation and accentuating the importance of clinical breast exam. IMPRESSION: No mammographic evidence of malignancy. Annual screening is recommended unless otherwise clinically indicated. ASSESSMENT: BI-RADS Category 2: Benign
== END ==
PROVIDERS: PCP Internal Medicine Adolescent Medicine; Visit Provider Internal Medicine Adolescent Medicine
DX: Z12.31 Encounter for screening mammogram for malignant neoplasm of breast (principal)
CPT/HCPCS: 77063; 77067

== ENCOUNTER 2022-05-01 14:39 | Emergency (ER) | payer MEDICARE, OTHER, SELFPAY ==
[2022-05-01] VITALS (8 sets, daily range): BP systolic 161–185; BP diastolic 66–90; PULSE 70–80; RESP 16–20; TEMP 36.8; O2SAT 95–99; BMI 27.9
--- NOTE | 2022-05-01 14:41 | HMH.EDGENADL ---
Discharge Plan Disposition Patient Disposition: Home, Self-Care Prescriptions Prescriptions: New amoxicillin-pot clavulanate 875-125 mg tablet 1 tab PO BID 10 Days Qty: 20 0RF No Action citalopram 40 mg tablet 40 mg PO DAILY polyethylene glycol 3350 [Miralax] 17 gram powder in packet 17 g PO DAILY Bystolic 5 mg tablet 5 mg PO DAILY pregabalin [Lyrica] 75 mg capsule 75 mg PO DAILY cholecalciferol (vitamin D3) 1,000 unit capsule 1,000 unit PO DAILY dicyclomine 20 MG tablet 20 mg PO QIDP PRN (Reason: STOMACH CRAMPS) diphenhydramine-acetaminophen 1 EACH tablet 2 tab PO HS PRN (Reason: Sleep) ondansetron 8 MG tablet,disintegrating 8 mg PO TID PRN (Reason: Nausea) omeprazole 20 MG capsule,delayed release(DR/EC) 20 mg PO BID fluticasone propionate 16 GM spray,suspension 16 gm NS DAILY dexamethasone 4 MG tablet 4 mg PO BID Qty: 14 0RF levofloxacin 500 MG tablet 500 mg PO DAILY Qty: 7 0RF metronidazole 500 MG tablet 500 mg PO TID Qty: 21 0RF Referrals Follow up/Referrals: Miguel Winkler MD [Primary Care Provider] - See instructions Activity Restrictions/Add. Instructions Additional Instructions/Restrictions: You have uncomplicated diverticulitis without any evidence of sepsis perforation or abscess formation. Please get your antibiotic filled and take your entire course. Please return with any sudden worsening of your pain fever that is unable to be controlled at home with Tylenol or ibuprofen or any other concerns. Otherwise follow-up with your primary care doctor next week. Clinical Impressions Clinical Impression: Diverticulitis Instructions Patient Instructions: DI for Acute Abdominal Pain Discharge ED Provider: Temi Hastings General Adult HPI General Chief complaint: Abdominal Pain Stated complaint: Excessive vomiting, diarrhea, abd pain Time Seen by Provider: 05/01/22 14:42 History of Present Illness HPI narrative: Patient is a 76-year-old female with a history of diverticulitis presenting with nausea vomiting diarrhea and diffuse abdominal pain which she states is similar to diverticulitis that she was admitted in the hospital for in the past. States that she had a temperature of 101 at home taken orally yesterday. Patient states she has had some bloody diarrhea as of yesterday. Denies any recent antibiotic use or hospitalizations or working in a healthcare setting. She states that she has had urinary burning frequency and urgency the past several days this has been a chronic problem for her she is followed by a urologist for chronic urinary retention but that this has worsened recently. Pain currently is moderate and diffuse in nature across her entire abdomen. Related Data Home Medications Medication Instructions Recorded Confirmed cholecalciferol (vitamin D3) 25 1,000 unit PO DAILY Supplement 12/22/18 11/27/20 mcg (1,000 unit) capsule citalopram 40 mg tablet 40 mg PO DAILY Anxiety 12/22/18 11/27/20 nebivolol 5 mg tablet (Bystolic) 5 mg PO DAILY BLOOD PRESSURE 12/22/18 11/27/20 polyethylene glycol 3350 17 gram 17 g PO DAILY constipation 12/22/18 11/27/20 oral powder packet (Miralax) pregabalin 75 mg capsule (Lyrica) 75 mg PO DAILY Depression 12/22/18 11/27/20 dicyclomine 20 mg tablet 20 mg PO QIDP PRN STOMACH CRAMPS 11/27/20 11/28/20 diphenhydramine 25 2 tab PO HS PRN Sleep 11/27/20 11/28/20 mg-acetaminophen 500 mg tablet fluticasone propionate 50 16 gm NS DAILY ALLERGIES 11/28/20 11/28/20 mcg/actuation nasal spray,suspension omeprazole 20 mg capsule,delayed 20 mg PO BID GERD 11/28/20 11/28/20 release ondansetron 8 mg disintegrating 8 mg PO TID PRN Nausea 11/28/20 11/28/20 tablet Previous Rx's Medication Instructions Recorded dexamethasone 4 mg tablet 4 mg PO BID #14 tabs 11/29/20 levofloxacin 500 mg tablet 500 mg PO DAILY #7 tabs 11/29/20 metronidazole 500 mg tablet 500 mg PO TID
[2022-05-01 15:11] LABS: Basophils # 0.1 K/mm3 (0-0.2); Basophils % 0.6 % (0.1-2.0); Chloride 99 mmol/L (98-107); Eosinophils # 0.1 K/mm3 (0.0-0.4); Hematocrit 40.7 % (37.0-47.0); Hemoglobin 13.7 g/dL (12.2-16.2); Lymphocytes # 1.6 K/mm3 (0.7-4.5); Lymphocytes % 13.5 % (10-50); Mean Corpuscular HGB Conc 33.6 g/dL (31.8-35.4); Mean Corpuscular Volume 89.5 fl (81-99); Mean Platelet Volume 8.5 fl (7.4-10.4); Monocytes % 8.4 % (1.7-9.3); Neutrophils # 8.9 K/mm3 (1.8-7.8); Neutrophils % 76.6 % (37.0-80.0); Platelet Count 317 K/mm3 (142-424); Potassium 3.9 mmoL/L (3.5-5.1); Red Blood Count 4.55 M/mm3 (4.20-5.40); Red Cell Distribution Width 13.1 % (11.5-17.5); Sodium 135 mmol/L (136-145); White Blood Count 11.6 K/mm3 (4.8-10.8)
--- NOTE | 2022-05-01 15:13 | CT_ITS ---
PROCEDURE INFORMATION: Exam: CT Abdomen And Pelvis With Contrast Exam date and time: 05/01/2022 4:33 PM Age: 76 years old Clinical indication: Abdominal tenderness; Patient HX: Lower abd pain; Additional info: Diffuse abd pain, h/o diverticulitis TECHNIQUE: Imaging protocol: Computed tomography of the abdomen and pelvis with contrast. Radiation optimization: All CT scans at this facility use at least one of these dose optimization techniques: automated exposure control; mA and/or kV adjustment per patient size (includes targeted exams where dose is matched to clinical indication); or iterative reconstruction. Contrast material: ISOVUE; Contrast volume: 75 ml; Contrast route: IV; REPORTING DATA: Count of CT and Cardiac NM exams in prior 12 months: This patient has received [address] and 0 known cardiac nuclear medicine studies in the 12 months prior to the current study. COMPARISON: CT ABDOMEN PELVIS W CON 11/27/2020 6:13 PM FINDINGS: Diaphragm: Small hiatal hernia. Liver: Normal. No mass. Gallbladder and bile ducts: Normal. No calcified stones. No ductal dilation. Pancreas: Normal. No ductal dilation. Spleen: Normal. No splenomegaly. Adrenal glands: Normal. No mass. Kidneys and ureters: Normal. No hydronephrosis. Stomach and bowel: Moderate wall thickening involving the descending and sigmoid colon. Associated pericolonic stranding and mild edematous changes with minimal fluid in the left paracolic and right paracolic gutters. Inflammatory changes are also demonstrated extending into the rectosigmoid colon compatible with colitis. Mild gaseous distension of the transverse colon. Moderate stool burden involving the rectosigmoid colon. Moderate stool burden. Colonic diverticulosis. Appendix: No evidence of appendicitis. Intraperitoneal space: Unremarkable. No free air. No significant fluid collection. Vasculature: Unremarkable. No abdominal aortic aneurysm. Lymph nodes: Unremarkable. No enlarged lymph nodes. Urinary bladder: Unremarkable as visualized. Reproductive: Unremarkable as visualized. Bones/joints: Unremarkable. No acute fracture. Soft tissues: Unremarkable. IMPRESSION: 1. Findings compatible with diverticulitis involving the descending and sigmoid colon. Associated small fluid collection extending into both the left and right paracolic gutters. 2. Demonstration of colitis extending into the region of the rectosigmoid colon. 3. Moderate stool burden.
[2022-05-01 15:14] LABS: Alanine Aminotransferase 22 U/L (12-78); Albumin Level 4.5 g/dl (3.5-5.0); Albumin/Globulin Ratio 1.6 (1.1-1.8); Alkaline Phosphatase 94 U/L (38-126); Anion Gap 10.9 mEq/L (5-15); Aspartate Amino Transferase 29 U/L (14-36); Bilirubin,Total 0.7 mg/dl (0.2-1.3); Blood Urea Nitrogen 14 mg/dl (7-17); Calcium 9.2 mg/dl (8.4-10.2); Carbon Dioxide 29 mmol/L (22.0-30.0); Creatinine Clearance Estimated 58 mL/min (50-200); Estimated Glomerular Filt Rate 70 ml/min (>60); GFR (African American) 85 ML/MIN (>60); Globulin 2.8 g/dL (1.3-3.2); Glucose 170 mg/dl (74-100); Total Protein,Serum 7.3 g/dl (6.3-8.2)
[2022-05-01 15:47] LABS: Lactic Acid 1.2 mmol/L (0.7-2.1); Lipase 58 U/L (23-300)
--- NOTE | 2022-05-01 16:13 | PC.NURSE ---
Pt. going to CT
--- NOTE | 2022-05-01 16:18 | PC.NURSE ---
Pt. taken to bathroom by radiology wheelchair
--- NOTE | 2022-05-01 16:34 | PC.NURSE ---
PT IN RADIOLOGY
--- NOTE | 2022-05-01 16:41 | PC.NURSE ---
PT BACK FROM RADIOLOGY
--- NOTE | 2022-05-01 17:55 | PC.NURSE ---
Adal OWUSU rounded on patient and got patient up to bathroom. Also, changed patient's bedding. Will continue to monitor call light within reach
== END 2022-05-01 19:02 | disposition home or self-care (01) ==
PROVIDERS: Emergency Provider Student in an Organized Health Care Education/Training Program; PCP Internal Medicine Adolescent Medicine
DX: K57.92 Diverticulitis of intestine, part unspecified, without perforation or abscess without bleeding (principal)
CPT/HCPCS: 74177; 80053; 83605; 83690; 85025; 96361; 96374; 96375; 99284; 99285; J2405; Q9967